=== PATIENT | male | born 1970 | race American Indian/Alaskan Native ===

== ENCOUNTER 2020-05-22 08:25 | Emergency (ER) | payer OTHER ==
[~2020-05-22] VITALS: Ht 172.7 cm; Wt 99.8 kg
[~2020-05-22 08:25] MED LIST: ACULAR5 ML OP; ASPIRIN EC81 MG PO; CRESTOR5 MG PO; GABAPENTIN600 MG PO; GLYBURIDE2.5 MG PO; JANUMET 50-5001 EACH PO; LANTUS SOL100 UNIT/1 SUB-Q; LISINOPRIL20 MG PO; MAGNESIUM500 MG PO; METFORMIN HCL500 MG PO; PERCOCET 7.5-31 EACH PO; SIMVASTATIN20 MG PO
[2020-05-22] MEDS ORDERED: METFORMIN HCL1000 MG PO (08:57)
--- OUTSIDE RECORDS SUMMARY | 2020-05-22 09:40 | XMS ---
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 05/22/2020-[facility] PHONE: [phone] Santos has no Care Guidelines for this patient. Care History Medical/Surgical 05/22/2020 [facility] - PATIENT IS [facility] ELIGIBLE, \T\middot;\T\nbsp; PLEASE REFER PATIENT TO [facility] FOR NON EMERGENT MEDICAL NEEDS. \T\middot;\T\nbsp; [facility] CAN SEE PATIENTS SAME DAY FOR APTS IF PATIENT CALLS FIRST THING IN THE MORNING. E.D. VISIT COUNT (12 MO.) [address] [place] [address] TOTAL 1 NOTE: Visits indicate total known visits. ED/UCC VISIT TRACKING (12 MO.) 05/22/2020 08:26 [facility] [place] TYPE: Emergency COMPLAINT: - R SIDE RIB PAIN INPATIENT VISIT TRACKING (12 MO.) No inpatient visits to display in this time frame [email or web address]
== END 2020-05-22 13:46 | disposition home or self-care (01) ==
LOC: ED 08:25
DX: R07.81 Pleurodynia (principal); E11.40 Type 2 diabetes mellitus with diabetic neuropathy, unspecified; E78.00 Pure hypercholesterolemia, unspecified; I10 Essential (primary) hypertension; Z91.010 Allergy to peanuts; Z79.899 Other long term (current) drug therapy; Z79.4 Long term (current) use of insulin; Z79.82 Long term (current) use of aspirin
CPT/HCPCS: 71101; 76705; 80053; 83690; 85025; 85379; 96374; 99284-25; J1885

== ENCOUNTER 2021-06-01 05:43 | Emergency (ER) | payer OTHER ==
[~2021-06-01] VITALS: Ht 172.7 cm; Wt 97.5 kg
[~2021-06-01 05:43] MED LIST changes: +METFORMIN HCL1000 MG PO
--- OUTSIDE RECORDS SUMMARY | 2021-06-01 05:46 | XMS ---
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 Care History Medical/Surgical 05/22/2020 [facility] - PATIENT IS [facility] ELIGIBLE, \T\middot;\T\nbsp; PLEASE REFER PATIENT TO [facility] FOR NON EMERGENT MEDICAL NEEDS. \T\middot;\T\nbsp; [facility] CAN SEE PATIENTS SAME DAY FOR APTS IF PATIENT CALLS FIRST THING IN THE MORNING. E.D. VISIT COUNT (12 MO.) [address] [place] [address] TOTAL 1 NOTE: Visits indicate total known visits. ED/UCC VISIT TRACKING (12 MO.) 06/01/2021 05:44 [facility] [place] TYPE: Emergency COMPLAINT: - LUMP ON NECK INPATIENT VISIT TRACKING (12 MO.) No inpatient visits to display in this time frame [email or web address]
[2021-06-01] MEDS ORDERED: ZYRTEC10 M3 PO (06:58)
[2021-06-01] MEDS ORDERED: medrol dose pack (06:58)
== END 2021-06-01 07:16 | disposition home or self-care (01) ==
LOC: ED 05:43
DX: T78.40XA Allergy, unspecified, initial encounter (principal); E78.00 Pure hypercholesterolemia, unspecified; I10 Essential (primary) hypertension; E11.40 Type 2 diabetes mellitus with diabetic neuropathy, unspecified; Z91.010 Allergy to peanuts; Z79.84 Long term (current) use of oral hypoglycemic drugs; Z79.4 Long term (current) use of insulin; Z79.82 Long term (current) use of aspirin; Z79.899 Other long term (current) drug therapy
CPT/HCPCS: 70360; 96372; 99283-25; J1100; J1200